=== PATIENT | male | born 1945 | race Caucasian/White ===

== ENCOUNTER 2016-04-01 10:01 | Day surgery (SDC) | payer OTHER ==
[~2016-04-01] VITALS: Ht 188 cm; Wt 96.6 kg
[~2016-04-01 10:01] MED LIST: ASPIR-LOW81 MG PO; ATORVASTATIN CA80 MG PO; CELEXA20 MG PO; CLOPIDOGREL75 MG PO; COLACE100 MG PO; CRESTOR20 MG PO; ENDOCET 5-3251 EACH PO; LIPITOR80 MG PO; LOPRESSOR25 MG PO; MILK OF MAGNESI10 ML PO; NITROSTAT0.4 MG SL
== END 2016-04-01 17:15 | disposition home or self-care (01) ==
LOC: CATH 10:01
DX: R07.9 Chest pain, unspecified (principal); I25.10 Atherosclerotic heart disease of native coronary artery without angina pectoris; Z95.5 Presence of coronary angioplasty implant and graft; E78.5 Hyperlipidemia, unspecified; I10 Essential (primary) hypertension; F17.200 Nicotine dependence, unspecified, uncomplicated; Z79.82 Long term (current) use of aspirin
CPT/HCPCS: C1769; C1887; J1644; J2250; J3010

== ENCOUNTER → 2016-04-18 | Outpatient (CLI) | payer OTHER ==
[~2016-04-18] VITALS: Ht 188 cm; Wt 96.7 kg
== END | disposition home or self-care (01) ==
LOC: AMB 07:53
PROC: 0DBL8ZX Excision of Transverse Colon, Via Natural or Artificial Opening Endoscopic, Diagnostic (ICD-10-PCS; principal; 2016-04-18)
DX: Z12.11 Encounter for screening for malignant neoplasm of colon (principal); Z09 Encounter for follow-up examination after completed treatment for conditions other than malignant neoplasm; D12.3 Benign neoplasm of transverse colon; Z86.010 Personal history of colon polyps; Z53.09 Procedure and treatment not carried out because of other contraindication; K58.9 Irritable bowel syndrome, unspecified; I25.10 Atherosclerotic heart disease of native coronary artery without angina pectoris; Z98.61 Coronary angioplasty status; Z82.49 Family history of ischemic heart disease and other diseases of the circulatory system; Z82.0 Family history of epilepsy and other diseases of the nervous system; K44.9 Diaphragmatic hernia without obstruction or gangrene; E78.5 Hyperlipidemia, unspecified; E66.3 Overweight; Z79.82 Long term (current) use of aspirin
CPT/HCPCS: 88305

== ENCOUNTER 2017-01-21 22:23 | Emergency (ER) | payer OTHER ==
[~2017-01-21] VITALS: Ht 188 cm; Wt 91.3 kg
[2017-01-22] MEDS ORDERED: CIPRO500 MG PO (00:08)
[2017-01-22 00:11] VITALS: BP 143/76
== END 2017-01-22 00:21 | disposition home or self-care (01) ==
LOC: RME 22:23 → EME 22:23 → RME 01-22 00:21
PROC: 3E0234Z Introduction of Serum, Toxoid and Vaccine into Muscle, Percutaneous Approach (ICD-10-PCS; principal; 2017-01-21)
DX: S91.332A Puncture wound without foreign body, left foot, initial encounter (principal); W25.XXXA Contact with sharp glass, initial encounter; Y93.01 Activity, walking, marching and hiking; Y92.009 Unspecified place in unspecified non-institutional (private) residence as the place of occurrence of the external cause; Z79.82 Long term (current) use of aspirin; Z23 Encounter for immunization
CPT/HCPCS: 73630; 99281; 99284